=== PATIENT | female | born 1945 | race Caucasian/White ===

== ENCOUNTER 2018-02-13 10:07 | Outpatient (CLI) | payer OTHER | END 2018-02-13 10:08 | disposition home or self-care (01) | DRG 556 | LOC: CONVCARE 10:07 | PROVIDERS: ATTEND Orthopaedic Surgery | DX: M25.532 Pain in left wrist (principal) | CPT/HCPCS: 73110 ==

== ENCOUNTER 2018-05-15 11:43 | Day surgery (SDC) | payer OTHER ==
[2018-05-15] MEDS ORDERED: CEPHALEXIN 250 MG/5 ML BOTTLE ONE (12:01)
[2018-05-15] MEDS ORDERED: LIDOCAINE HCL 1% MPF 30 SOL ONE (12:06)
[2018-05-15 12:15] VITALS: RESP 16
[2018-05-15 13:51] VITALS: BP 119/77; PULSE 70; TEMP 97.9; O2SAT 98
== END 2018-05-15 13:20 | disposition home or self-care (01) | DRG 558 ==
LOC: SURG 11:43
PROVIDERS: ATTEND Orthopaedic Surgery
DX: M65.312 Trigger thumb, left thumb (principal)
CPT/HCPCS: A9270-GY; J2001

== ENCOUNTER 2018-11-06 15:10 | Outpatient (CLI) | payer OTHER ==
[2018-05-15 13:51] VITALS: O2SAT 98
== END 2018-11-06 15:11 | disposition home or self-care (01) | DRG 556 ==
LOC: CONVCARE 15:10
PROVIDERS: ATTEND Orthopaedic Surgery
DX: M25.552 Pain in left hip (principal); S73.005A Unspecified dislocation of left hip, initial encounter; Z96.642 Presence of left artificial hip joint
CPT/HCPCS: 73502